=== PATIENT | female | born 1985 | race Caucasian/White ===

== ENCOUNTER 2023-10-26 04:09 | Emergency (ER) | payer BC ==
[~2023-10-26] VITALS: Ht 157.5 cm; Wt 70.3 kg
[2023-10-26 04:20] VITALS: BP 122/74; PULSE 76; RESP 17; TEMP 98; O2SAT 100
[2023-10-26 05:52] LABS: BASOPHILS % (AUTO) 0.5 % (0.0-2.0); EOSINOPHILS # (AUTO) 0.1 K/uL (0-0.4); EOSINOPHILS % (AUTO) 0.6 % (0.0-4.0); HEMOGLOBIN 11.2 g/dL (12.0-16.0); LYMPHOCYTES % (AUTO) 21.5 % (20.5-51.1); MEAN CORPUSCULAR HEMOGLOBIN 30 pg (27-31); MEAN CORPUSCULAR HGB CONC 34 g/dL (33-37); MEAN CORPUSCULAR VOLUME 87.5 fL (80-94); MONOCYTES # (AUTO) 0.8 K/uL (0.8-1.0); MONOCYTES % (AUTO) 8.4 % (1.7-9.3); NEUTROPHILS # (AUTO) 6.5 K/uL (1.8-7.7); PLATELET COUNT (AUTO) 285 K/uL (140-450); RED BLOOD CELL COUNT(AUTO) 3.78 MIL/uL (4.20-5.40); WHITE BLOOD COUNT (AUTO) 9.4 K/uL (4.8-10.8)
[2023-10-26 06:02] LABS: ANION GAP 12.2 (8-16); CALCIUM 8.7 mg/dL (8.5-10.1); CARBON DIOXIDE 25.6 mmol/L (21-32); CREATININE 0.5 mg/dL (0.6-1.3); POTASSIUM 3.8 mmol/L (3.5-5.1)
[2023-10-26 07:52] VITALS: BP 110/67; PULSE 73; RESP 18; TEMP 98.6; O2SAT 99
== END 2023-10-26 07:47 | disposition home or self-care (01) ==
LOC: MED 04:09
DX: O99.512 Diseases of the respiratory system complicating pregnancy, second trimester (principal); R06.00 Dyspnea, unspecified; Z3A.27 27 weeks gestation of pregnancy
CPT/HCPCS: 36415; 71045; 80048; 81025; 85025; 85379; 93005; 99285; Q0092